=== PATIENT | female | born 1990 | race Asian ===

== ENCOUNTER 2021-03-07 21:41 | Inpatient (IN) | payer MEDICAID ==
[2021-03-07] MEDS ORDERED: Metoclopramide 10 MG/2 ML SDV IVPUSH ONE (22:33)
[2021-03-07] MEDS ORDERED: ceFAZolin 2 GM in Premix Bag 1 BAG IV ONE (22:33)
[2021-03-07] MEDS ORDERED: Sodium Chloride 0.9% 10 ML Syringe FLUSH PRN (22:33)
[2021-03-07] MEDS ORDERED: Citric Acid/Sodium Citrate Solution 30 ML Cup PO ONE (22:33)
[2021-03-07] MEDS ORDERED: Azithromycin 500 MG in Sodium Chloride 0.9% 250 ML IV ONE (22:40)
[2021-03-07] MEDS ORDERED: Lactated Ringers 1,000 ML IV SCH (22:45)
--- NOTE | 2021-03-07 22:58 | PCM.LDHP ---
L&D History of Present Illness - General Date of Service: 03/07/21 Admit Problem/Dx: Patient Status Order with Admit Dx/Problem 03/07/21 22:12 Patient Status [ADT] Routine 03/07/21 22:34 Patient Status [ADT] Routine Admission Diagnosis/Problem Admission Diagnosis/Problem Source of Information: Patient History Limitations: Reports: No Limitations - History of Present Illness Introduction:: Patient is a 30 y/o at 38 5/7 wks who presents this PM with SROM. Thinks this occurred at about 2130 or so. Minimal contractions since. 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: , Spontaneous : 3 Para: 1 LMP (Approximate): - Past Surgical History Female Surgical History: Reports: Section Social & Family History - Tobacco Use Tobacco Use Status *Q: Never Tobacco User - Alcohol Use Alcohol Use History: No - Recreational Drug Use Recreational Drug Use: No H&P Review of Systems - Review of Systems: Review Of Systems: See Below General: Reports: No Symptoms Pulmonary: Reports: No Symptoms Cardiovascular: Reports: No Symptoms Gastrointestinal: Reports: No Symptoms Genitourinary: Reports: No Symptoms Musculoskeletal: Reports: No Symptoms Psychiatric: Reports: No Symptoms Neurological: Reports: No Symptoms L&D Exam - Exam Exam: See Below - Vital Signs Weight: 126 kg - OB Specific Movement: Active Heart Tones: Present Heart Tones per Min: 140 Heart Rate (FHR) Variability: Moderate (6-25 bmp) - Exam General: Alert, Oriented, Cooperative Lungs: Clear to Auscultation, Normal Respiratory Effort Cardiovascular: Regular Rate, Regular Rhythm GI/Abdominal Exam: Soft, Non-Tender Genitourinary: Normal external exam Extremities: Normal Inspection Skin: Warm, Dry, Intact - Patient Data Lab Results Last 24 hrs: Laboratory Results - last 24 hr 03/07/21 Range/Units 22:10 Membrane Rupture Positive H - Problem List (1) 38 weeks gestation of SNOMED Code(s): 67954015 ICD Code: Z3A.38 - 38 WEEKS GESTATION OF Status: Acute Current Visit: Yes (2) SROM (spontaneous rupture of membranes) SNOMED Code(s): 754117813 ICD Code: [id number] - Status: Acute Current Visit: Yes Problem List Initiated/Reviewed/Updated: Yes Orders Last 24hrs: Active Orders 24 hr Category Date Time Status Patient Status [ADT] Routine ADT 03/07/21 22:12 Active Patient Status [ADT] Routine ADT 03/07/21 22:34 Active Communication Order [RC] ROUTINE Care 03/07/21 22:34 Active Heart Tones [RC] PER UNIT ROUTINE Care 03/07/21 22:34 Active Non Stress Test [RC] PER UNIT ROUTINE Care 03/07/21 22:12 Active Non Stress Test [RC] PER UNIT ROUTINE Care 03/07/21 22:34 Active Peripheral IV Care [RC] . DIRECTED Care 03/07/21 22:34 Active Procedure Site Prep Instruct [RC] ASDIRECTED Care 03/07/21 22:34 Active Urinary Catheter Assessment [RC] ASDIRECTED Care 03/07/21 22:33 Active Verify Patient Consent Obtain [RC] PER UNIT ROUTINE Care 03/07/21 22:34 Active Vital Signs [RC] PER UNIT ROUTINE Care 03/07/21 22:12 Active Vital Signs [RC] PFP Care 03/07/21 22:34 Active Nothing Per Oral Diet [DIET] Diet 03/07/21 Breakfast Active CBC WITH AUTO DIFF [HEME] Stat Lab 03/07/21 22:33 Ordered CORONAVIRUS COVID-19 LISSETTE [MOLEC] Stat Lab 03/07/21 22:38 Ordered RAPID PLASMA REAGIN,RPR [CHEM] Routine Lab 03/07/21 22:34 Ordered TYPE AND SCREEN [BBK] Routine Lab 03/07/21 22:34 Ordered Azithromycin [Zithromax] 500 mg Med 03/07/21 22:40 Active Sodium Chloride 0.9% [Normal Saline (AdvBag)] 250 ml IV ONETIME Lactated Ringers [Ringers, Lactated] 1,000 ml Med 03/07/21 22:45 Active IV ASDIRECTED Sodium Chloride 0.9% [Saline Flush] Med 03/07/21 22:33 Active 10 ml FLUSH ASDIRECTED PRN ceFAZolin [Ancef 2 GM/50 ML] 2 gm Med 03/07/21 22:33 Active Premix Bag 1 bag IV ONETIME Peripheral IV Insertion Adult [OM.PC] Routine Oth 03/07/21 22:34 Ordered Schedule Procedure [COMM] Per Unit Routine Oth 03/07/21 22:34 Ordered Resuscitation Status Routine Resus Stat 03/07/21 22:12 Ordered Medication Orders Lactated Ringer's (Ringers, Lactated) 1,000 mls @ 125 mls/hr IV ASDIRECTED [facility] Cefazolin Sodium/Dextrose 2 gm (/ Premix) 50 mls @ 100 mls/hr IV ONETIME ONE Stop: 03/07/21 23:02 Azithromycin 500 mg/ Sodium (Chloride) 250 mls @ 250 mls/hr IV ONETIME ONE Stop: 03/07/21 23:39 Sodium Chloride (Sodium Chloride 0.9% 10 Ml Syringe) 10 ml FLUSH ASDIRECTED PRN PRN Reason: Keep Vein Open Assessment/Plan Comment:: * Labs to be done * Consent reviewed and signed again * Ancef and Azithromycin * Peds and Anesthesia to be made aware * Will proceed with RLTCS per patient preference
--- NOTE | 2021-03-07 23:44 | PCM.PREANE ---
Preanesthetic Assessment - Procedure Proposed Procedure: Repeat C section - Anesthesia/Transfusion/Family Hx Anesthesia History: Prior Anesthesia Without Reaction Family History of Anesthesia Reaction: No Transfusion History: No Prior Transfusion(s) Intubation History: Unknown - Review of Systems General: No Symptoms Pulmonary: No Symptoms Cardiovascular: No Symptoms Gastrointestinal: No Symptoms Neurological: No Symptoms Other: Reports: None - Physical Assessment NPO Status Date: 03/07/21 NPO Status Time: 17:30 Vital Signs: Last Vital Signs Temp 36.9 C 03/07/21 22:04 Pulse 79 03/07/21 22:04 Resp 16 03/07/21 22:04 BP 118/81 03/07/21 22:04 Pulse Ox 100 03/07/21 22:04 Height: 1.52 m Weight: 57.153 kg ASA Class: 2 Mental Status: Alert & Oriented x3 Airway Class: Mallampati = 2 Dentition: Reports: Normal Dentition, Caries Thyro-Mental Finger Breadths: 3 Mouth Opening Finger Breadths: 3 ROM/Head Extension: Full Lungs: Clear to Auscultation, Normal Respiratory Effort Cardiovascular: Regular Rate, Regular Rhythm, No Murmurs - Lab Values: Laboratory Last Values WBC 13.06 K/mm3 (3.98-10.04) H 03/07/21 22:49 RBC 3.95 M/mm3 (3.98-5.22) L 03/07/21 22:49 Hgb 11.2 gm/dl (11.2-15.7) 03/07/21 22:49 Hct 34.7 % (34.1-44.9) 03/07/21 22:49 MCV 87.8 fl (79.4-94.8) 03/07/21 22:49 MCH 28.4 pg (25.6-32.2) 03/07/21 22:49 MCHC 32.3 g/dl (32.2-35.5) 03/07/21 22:49 RDW Std Deviation 42.8 fL (36.4-46.3) 03/07/21 22:49 Plt Count 184 K/mm3 (182-369) 03/07/21 22:49 MPV 10.5 fl (9.4-12.3) 03/07/21 22:49 Neut % (Auto) 76.2 % (34.0-71.1) H 03/07/21 22:49 Lymph % (Auto) 16.8 % (19.3-51.7) L 03/07/21 22:49 Cuming % (Auto) 6.4 % (4.7-12.5) 03/07/21 22:49 Eos % (Auto) 0.2 (0.7-5.8) L 03/07/21 22:49 Baso % (Auto) 0.2 % (0.1-1.2) 03/07/21 22:49 Neut # (Auto) 9.95 K/mm3 (1.56-6.13) H 03/07/21 22:49 Lymph # (Auto) 2.19 K/mm3 (1.18-3.74) 03/07/21 22:49 Cuming # (Auto) 0.83 K/mm3 (0.24-0.36) H 03/07/21 22:49 Eos # (Auto) 0.03 K/mm3 (0.04-0.36) L 03/07/21 22:49 Baso # (Auto) 0.03 K/mm3 (0.01-0.08) 03/07/21 22:49 Membrane Rupture Positive H 03/07/21 22:10 Above labs reviewed and noted and within acceptable ranges to proceed with procedure. 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 - Past Surgical History Female Surgical History: Reports: Section - SUBSTANCE USE Tobacco Use Status *Q: Never Tobacco User Second Hand Smoke Exposure: No Recreational Drug Use History: No - HOME MEDS Home Medications: Home Meds Vits #93/Iron Fum/FA [ Formula Tablet] 1 tab PO DAILY 03/07/21 [History] - CURRENT (IN HOUSE) MEDS Current Meds: Current Medications Lactated Ringer's (Ringers, Lactated) 1,000 mls @ 125 mls/hr IV ASDIRECTED JOS[facility]UA Last Admin: 03/07/21 23:30 Dose: 125 mls/hr Documented by: Sodium Chloride (Sodium Chloride 0.9% 10 Ml Syringe) 10 ml FLUSH ASDIRECTED PRN PRN Reason: Keep Vein Open Discontinued Medications Citric Acid/Sodium Citrate (Citric Acid/Sodium Citrate Solution 30 Ml Cup) 30 ml PO ONETIME ONE Stop: 03/07/21 22:34 Last Admin: 03/07/21 23:28 Dose: 30 ml Documented by: Cefazolin Sodium/Dextrose 2 gm (/ Premix) 50 mls @ 100 mls/hr IV ONETIME ONE Stop: 03/07/21 23:02 Azithromycin 500 mg/ Sodium (Chloride) 250 mls @ 250 mls/hr IV ONETIME ONE Stop: 03/07/21 23:39 Last Admin: 03/07/21 23:28 Dose: 250 mls/hr Documented by: Metoclopramide HCl (Metoclopramide 10 Mg/2 Ml Sdv) 10 mg IVPUSH ONETIME ONE Stop: 03/07/21 22:34 Last Admin: 03/07/21 23:28 Dose: 10 mg Documented by:
[2021-03-07] MEDS ORDERED: ceFAZolin 1 GM Vial ONE (23:57)
[2021-03-07] MEDS ORDERED: Lactated Ringers 1,000 ML ONE (23:57)
[2021-03-07] MEDS ORDERED: Ondansetron 4 MG/2 ML SDV ONE (23:57)
[2021-03-07] MEDS ORDERED: Oxytocin 10 Units/1 ML SDV ONE (23:57)
[2021-03-07] MEDS ORDERED: Morphine PF 10 MG/10 ML SDV ONE (23:57)
[2021-03-07] MEDS ORDERED: Ketorolac 30 MG/ML SDV ONE (23:57)
[2021-03-08] MEDS ORDERED: ePHEDrine 50 MG/ML SDV IVPUSH PRN ×2 (00:17→02:52)
[2021-03-08] MEDS ORDERED: Ondansetron 4 MG/2 ML SDV IVPUSH PRN (00:17)
[2021-03-08] MEDS ORDERED: HYDROmorphone 0.5 MG/0.5 ML Syringe IVPUSH PRN (00:17)
[2021-03-08] MEDS ORDERED: diphenhydrAMINE 50 MG/ML SDV IVPUSH PRN ×2 (00:17→02:52)
[2021-03-08] MEDS ORDERED: fentaNYL 100 MCG/2 ML SDV IVPUSH PRN (00:17)
[2021-03-08] MEDS ORDERED: Meperidine 50 MG/ML Vial ONE (00:29)
--- NOTE | 2021-03-08 00:55 | PCM.OPNOTE ---
- General Post-Op/Procedure Note Date of Surgery/Procedure: 03/08/21 Operative Procedure(s): Repeat low transverse c section Findings: Moderate scarring between the rectus and fascia. Minimal scar tissue between the bladder and lower uterine segment. Baby girl in a vertex presentation with APGARS of 8 & 9. Weight of 5 lbs 11 oz. Normal appearance of the uterus, fallopian tubes, and ovaries. Pre Op Diagnosis: 38 6/7 weeks. SROM. History of . Declined TOLAC Post-Op Diagnosis: Same Anesthesia Technique: Spinal Primary Surgeon: Gabriela Mace Secondary Surgeon: Sadie Pittman Anesthesia Provider: Renetta Jolley Reason Interventional Radiology Rn Was Necessary: Speed, safety of procedure Pathology: Cord blood collected. Placenta discharged. Fluid Replacement, Intraop: 1,250 Output, Urine Amount: 200 EBL in mLs: 700 Complications: None Condition: Good Free Text/Narrative:: The risks, benefits, indications, potential complications, and alternatives were explained to the patient and informed consent obtained. After induction of anesthesia, the patient was placed in a supine position and then draped and prepped in the usual sterile manner. A Pfannenstiel incision was made and carried down through the subcutaneous tissue to the fascia. Fascial incision was made and extended transversely. The fascia was from the underlying rectus tissue superiorly and inferiorly. The peritoneum was identified and entered. Peritoneal incision was extended longitudinally. The utero-vesical peritoneal reflection was incised transversely and the bladder flap was bluntly freed from the lower uterine segment. A low transverse uterine incision was made sharply with a scalpel and extended bluntly in a cephalocaudad direction. A baby girl was delivered from vertex presentation with APGARS as above. After the umbilical cord was clamped and cut cord blood was obtained for evaluation. The placenta was removed intact and appeared normal. The uterus was exteriorized and cleared of clots. The uterine outline, tubes and ovaries appeared normal. The uterine incision was closed with running locked sutures of 0 Vicryl. Hemostasis was obtained with a second imbricating layer of 0 Vicryl. The uterus was then placed back into the abdomen. The infracolic gutters were cleared of blood clots. The fascia was then reapproximated with running sutures of 0 Vicryl. The subcutaneous tissue was irrigated with sterile warm normal saline, hemostasis obtained with cautery. The skin was reapproximated with running Subcuticular 4- 0 Monocryl suture and sealed with Dermabond. Instrument, sponge, and needle counts were correct prior the abdominal closure and at the conclusion of the case.
--- NOTE | 2021-03-08 01:04 | PCM.POSTAN ---
POST ANESTHESIA ASSESSMENT - MENTAL STATUS Mental Status: Alert - VITAL SIGNS Vital Signs: Last Vital Signs Temp 37.0 C 03/08/21 01:00 Pulse 75 03/08/21 01:00 Resp 14 03/08/21 01:00 BP 100/68 03/08/21 01:00 Pulse Ox 99 03/08/21 01:00 - RESPIRATORY Respiratory Status: Respiratory Rate WNL, Airway Patent, O2 Saturation Stable - CARDIOVASCULAR CV Status: Pulse Rate WNL, Blood Pressure Stable - GASTROINTESTINAL GI Status: No Symptoms - POST OP HYDRATION Hydration Status: Adequate & Stable
[2021-03-08] MEDS ORDERED: Dextrose 5%-Lactated Ringers 1,000 ML IV SCH (02:52)
[2021-03-08] MEDS ORDERED: Docusate Sodium 100 MG Cap PO PRN (02:52)
[2021-03-08] MEDS ORDERED: Ondansetron 4 MG/2 ML SDV IV PRN (02:52)
[2021-03-08] MEDS ORDERED: Acetaminophen/oxyCODONE 325-5 MG Tab PO PRN (02:52)
[2021-03-08] MEDS ORDERED: Lactated Ringers 500 ML IV ONE (06:19)
[2021-03-08] MEDS: Ketorolac 30 MG/ML SDV IVPUSH SCH ×3 (06:47→19:22)
--- NOTE | 2021-03-08 08:35 | PCM48HPAN ---
Post Anesthesia Note - EVALUATION WITHIN 48HRS OF ANESTHETIC Vital Signs in Normal Range: Yes Patient Participated in Evaluation: Yes Respiratory Function Stable: Yes Airway Patent: Yes Cardiovascular Function Stable: Yes Hydration Status Stable: Yes Pain Control Satisfactory: Yes Nausea and Vomiting Control Satisfactory: Yes Mental Status Recovered: Yes Vital Signs: Last Vital Signs Temp 36.4 C 03/08/21 04:28 Pulse 66 03/08/21 04:33 Resp 15 03/08/21 07:00 BP 103/68 03/08/21 04:33 Pulse Ox 98 03/08/21 07:00
[2021-03-08] MEDS: Acetaminophen/oxyCODONE 325-5 MG Tab PO PRN (16:08)
[2021-03-09] MEDS: Ibuprofen 600 MG Tab PO PRN (02:06)
--- NOTE | 2021-03-09 06:31 | PCM.DCSUM1 ---
Discharge Summary - Hospital Course Free Text/Narrative:: Patient is a 30-year-old 3 now para 2-0-1-2 female was admitted at 38-5/7 weeks gestational age on 03/07/2021. She underwent repeat section at that time. Please see operative report for details. Postoperatively patient has done well. She is desiring discharge home. Diagnosis: Stroke: No - Discharge Data Discharge Date: 03/09/21 Discharge Disposition: Home, Self-Care 01 Condition: Good - Referral to Home Health Primary Care Physician: Gabriela Mace MD - Patient Summary/Data Operative Procedure(s) Performed: Repeat low transverse c section - Patient Instructions Diet: Regular Diet as Tolerated Activity: As Tolerated (No intercourse tampons still bleeding resolves. No lifting greater than 15 pounds or driving a car x1 week.) Driving: Do Not Drive Showering/Bathing: May Shower Wound/Incision Care: Keep Operative Site/Wound Site Clean and Dry Notify Provider of: Fever, Increased Pain, Swelling and Redness - Discharge Plan Home Medications: Home Meds Vits #93/Iron Fum/FA [ Formula Tablet] 1 tab PO DAILY 03/07/21 [History] Acetaminophen/oxyCODONE [Percocet 325-5 MG] 2 tab PO Q4H PRN tablet 03/09/21 [Rx] Ibuprofen [Motrin] 600 mg PO Q6H PRN tablet 03/09/21 [Rx] Referrals: Gabriela Mace MD [Primary Care Provider] - (Patient is to call [facility] to make a appointment.) - Discharge Summary/Plan Comment DC Time >30 min.: No Discharge Summary/Plan Comment: Discharge instructions: 1. Discharge home 2. Diet, activity and follow-up discussed with patient. Recommend nursing diet with increased calories and calcium. 3. Precautions given concern increased pain, bleeding, temperature, signs/symptoms of DVT/PE. 4. Medications per home medication was printed, discussed with and given to the patient. 5. Return to clinic-Dr. Mace at [facility] in 2 weeks. Diagnosis: Term -history of previous section desire for repeat sectiondelivered by repeat section Condition: Good - Patient Data Vitals - Most Recent: Last Vital Signs Temp 36.5 C 03/09/21 02:00 Pulse 82 05/15/21 02:04 Resp 15 03/09/21 02:04 BP 98/64 03/09/21 02:04 Pulse Ox 96 03/09/21 02:04 Weight - Most Recent: 57.153 kg I&O - Last 24 hours: Intake & Output 03/08/21 03/08/21 03/09/21 14:59 22:59 06:59 Intake Total 800 Output Total 250 Balance 550 Lab Results - Last 24 hrs: Laboratory Results - last 24 hr 03/07/21 03/09/21 Range/Units 22:49 05:16 WBC 10.53 H (3.98-10.04) K/mm3 RBC 3.34 L (3.98-5.22) M/mm3 Hgb 9.5 L D (11.2-15.7) gm/dl Hct 29.4 L (34.1-44.9) % MCV 88.0 (79.4-94.8) fl MCH 28.4 (25.6-32.2) pg MCHC 32.3 (32.2-35.5) g/dl RDW Std Deviation 41.9 (36.4-46.3) fL Plt Count 158 L (182-369) K/mm3 MPV 9.7 (9.4-12.3) fl RPR Non-reactive (NONREACTIVE) Med Orders - Current: Current Medications Diphenhydramine HCl (Diphenhydramine 50 Mg/Ml Sdv) 25 mg IVPUSH Q6H PRN PRN Reason: pruritis Diphenhydramine HCl (Diphenhydramine 50 Mg/Ml Sdv) 25 mg IVPUSH Q6H PRN PRN Reason: Itching or Nausea Docusate Sodium (Docusate Sodium 100 Mg Cap) 100 mg PO Q12H PRN PRN Reason: Constipation Last Admin: 03/08/21 16:08 Dose: 100 mg Documented by: Ephedrine Sulfate (Ephedrine 50 Mg/Ml Sdv) 5 mg IVPUSH ASDIRECTED PRN PRN Reason: Hypotension Ephedrine Sulfate (Ephedrine 50 Mg/Ml Sdv) 5 mg IVPUSH SEECOMMENT PRN PRN Reason: Other Fentanyl (Fentanyl 100 Mcg/2 Ml Sdv) 50 mcg IVPUSH Q20M PRN PRN Reason: Pain Hydromorphone HCl (Hydromorphone 0.5 Mg/0.5 Ml Syringe) 0.5 mg IVPUSH Q10M PRN PRN Reason: Pain (severe 7-10) Ibuprofen (Ibuprofen 600 Mg Tab) 600 mg PO Q6H PRN PRN Reason: mild pain or fever Last Admin: 03/09/21 02:06 Dose: 600 mg Documented by: Miscellaneous Medication (Phenylephrine Hcl In 0.9% Nacl 1 Mg/10 Ml Syringe) 0.1 mg IVPUSH Q10M PRN PRN Reason: Hypotension Ondansetron HCl (Ondansetron 4 Mg/2 Ml Sdv) 4 mg IVPUSH ONETIME PRN PRN Reason: Nausea/Vomiting Ondansetron HCl (Ondansetron 4 Mg/2 Ml Sdv) 4 mg IV Q8H PRN PRN Reason: Nausea/Vomiting Oxycodone/Acetaminophen (Acetaminophen/Oxycodone 325-5 Mg Tab) 1 tab PO Q4H PRN PRN Reason: Pain (moderate 4-6) Last Admin: 03/08/21 16:08 Dose: 1 tab Documented by: Oxycodone/Acetaminophen (Acetaminophen/Oxycodone 325-5 Mg Tab) 2 tab PO Q4H PRN PRN Reason: Pain (severe 7-10) Discontinued Medications Cefazolin Sodium (Cefazolin 1 Gm Vial) Confirm Administered Dose 2 gm .ROUTE .STK-MED ONE Stop: 03/07/21 23:58 Citric Acid/Sodium Citrate (Citric Acid/Sodium Citrate Solution 30 Ml Cup) 30 ml PO ONETIME ONE Stop: 03/07/21 22:34 Last Admin: 03/07/21 23:28 Dose: 30 ml Documented by: Lactated Ringer's (Ringers, Lactated) 1,000 mls @ 125 mls/hr IV ASDIRECTED [facility] Last Admin: 03/07/21 23:30 Dose: 125 mls/hr Documented by: Cefazolin Sodium/Dextrose 2 gm (/ Premix) 50 mls @ 100 mls/hr IV ONETIME ONE Stop: 03/07/21 23:02 Last Admin: 03/08/21 02:53 Dose: Not Given Documented by: Azithromycin 500 mg/ Sodium (Chloride) 250 mls @ 250 mls/hr IV ONETIME ONE Stop: 03/07/21 23:39 Last Admin: 03/07/21 23:28 Dose: 250 mls/hr Documented by: Lactated Ringer's (Ringers, Lactated) Confirm Administered Dose 1,000 mls @ as directed .ROUTE .STK-MED ONE Stop: 03/07/21 23:58 Dextrose/Lactated Ringer's (Dextrose 5%-Lactated Ringers) 1,000 mls @ 125 mls/hr IV ASDIRECTED [facility] Stop: 03/08/21 10:51 Last Admin: 03/08/21 04:34 Dose: 125 mls/hr Documented by: Lactated Ringer's (Ringers, Lactated) 500 mls @ 500 mls/hr IV .BOLUS ONE Stop: 03/08/21 07:18 Last Admin: 03/08/21 06:35 Dose: 500 mls/hr Documented by: Ketorolac Tromethamine (Ketorolac 30 Mg/Ml Sdv) Confirm Administered Dose 30 mg .ROUTE .STK-MED ONE Stop: 03/07/21 23:58 Ketorolac Tromethamine (Ketorolac 30 Mg/Ml Sdv) 30 mg IVPUSH Q6H [facility] Stop: 03/08/21 18:31 Last Admin: 03/08/21 19:22 Dose: 30 mg Documented by: Meperidine HCl (Meperidine 50 Mg/Ml Vial) Confirm Administered Dose 50 mg .ROUTE .STK-MED ONE Stop: 03/08/21 00:30 Metoclopramide HCl (Metoclopramide 10 Mg/2 Ml Sdv) 10 mg IVPUSH ONETIME ONE Stop: 03/07/21 22:34 Last Admin: 03/07/21 23:28 Dose: 10 mg Documented by: Miscellaneous Medication (Phenylephrine Hcl In 0.9% Nacl 1 Mg/10 Ml Syringe) Confirm Administered Dose 1 mg .ROUTE .STK-MED ONE Stop: 03/07/21 23:58 Morphine Sulfate (Morphine Pf 10 Mg/10 Ml Sdv) Confirm Administered Dose 10 mg .ROUTE .STK-MED ONE Stop: 03/07/21 23:58 Ondansetron HCl (Ondansetron 4 Mg/2 Ml Sdv) Confirm Administered Dose 4 mg .ROUTE .STK-MED ONE Stop: 03/07/21 23:58 Oxytocin (Oxytocin 10 Units/1 Ml Sdv) Confirm Administered Dose 10 unit .ROUTE .[facility]-MED ONE Stop: 03/07/21 23:58 Sodium Chloride (Sodium Chloride 0.9% 10 Ml Syringe) 10 ml FLUSH ASDIRECTED PRN PRN Reason: Keep Vein Open
[2021-03-09] MEDS: Acetaminophen/oxyCODONE 325-5 MG Tab PO PRN ×3 (08:44→19:49)
[2021-03-10] MEDS: Ibuprofen 600 MG Tab PO PRN (02:59)
== END 2021-03-10 09:00 | disposition home or self-care (01) | DRG 788 ==
LOC: JD.OBCHECK 21:41 → JD.OB 21:56 → JD.OBCHECK 22:34 → UNDOADMIN 22:34 → JD.OB 22:34 → UNDODISIN 03-10 09:00
PROVIDERS: ADMIT Obstetrics & Gynecology; ATTEND Obstetrics & Gynecology
PROC: 10D00Z1 Extraction of Products of Conception, Low, Open Approach (ICD-10-PCS; principal; 2021-03-07)
DX: O34.211 Maternal care for low transverse scar from previous cesarean delivery (principal); Z37.0 Single live birth; Z20.822 Contact with and (suspected) exposure to COVID-19; Z3A.38 38 weeks gestation of pregnancy
CPT/HCPCS: 01961; 36415; 59025; 84112; 85025; 85027; 86592; 86803; 86850; 86900; 86901; 94762; A9270-GY; J0456; J0690; J1885; J2175; J2270; J2370; J2405; J2590; J2765; J7050; J7120; J7121; U0002